=== PATIENT | female | born 1995 | race Caucasian/White ===

== ENCOUNTER 2023-06-10 12:53 | Inpatient (IN) | payer BC, OTHER ==
[~2023-06-10] VITALS: Ht 157.5 cm; Wt 38.8 kg
[2023-06-10 13:57] LABS: BASOPHILS % (AUTO) 0.5 % (0-1); EOSINOPHILS % (AUTO) 0.4 % (0-6); HEMATOCRIT 40.6 % (35.0-45.0); HEMOGLOBIN 13.5 g/dl (12.0-16.0); LYMPHOCYTES # (AUTO) 1.3 X10'3 (1.1-4.8); LYMPHOCYTES % (AUTO) 15.7 % (21-51); MEAN CORPUSCULAR HEMOGLOBIN 29.1 PG (27.0-31.0); MEAN CORPUSCULAR HGB CONC 33.1 g/dL (33.0-36.5); MEAN PLATELET VOLUME 9.6 FL (7.4-10.4); MONOCYTES # (AUTO) 0.5 X10'3 (0-0.9); MONOCYTES % (AUTO) 6.2 % (2-12); NEUTROPHILS # (AUTO) 6.2 X10'3 (1.8-7.7); NEUTROPHILS % (AUTO) 77.2 % (42-75); PLATELET COUNT 200 X10'3 (140-440); RED BLOOD COUNT 4.62 X10'6 (4.20-5.60); RED CELL DISTRIBUTION WIDTH 14.1 % (11.5-14.5); WHITE BLOOD COUNT 8.1 X10'3 (4.5-11.0)
[2023-06-10 14:08] LABS: ALANINE AMINOTRANSFERASE 15 U/L (12-78); ALBUMIN 4.2 G/DL (3.4-5.0); ALBUMIN/GLOBULIN RATIO 1.3 (1.1-1.5); ALKALINE PHOSPHATASE 76 IU/L (46-116); ANION GAP 8 (8-16); ASPARTATE AMINO TRANSFERASE 15 U/L (10-37); BILIRUBIN,TOTAL 0.5 MG/DL (0.1-1.0); BLOOD UREA NITROGEN 21 MG/DL (7-18); BUN/CREATININE RATIO 30.4 (10.0-20.0); CALCIUM 8.5 MG/DL (8.5-10.1); CHLORIDE 106 MMOL/L (99-107); CREATININE 0.69 MG/DL (0.40-0.90); GLUCOSE 95 MG/DL (70-104); LIPASE 26 U/L (16-77); POTASSIUM 4.9 MMOL/L (3.5-5.1); SODIUM 140 MMOL/L (135-145); TOTAL CARBON DIOXIDE 25.8 MMOL/L (24-32); TOTAL PROTEIN 7.5 G/DL (6.4-8.2); eCRCL 78 ML/MIN; eGFR > 90 ML/MIN
[2023-06-10] MEDS ORDERED: pantoprazole 40mg IV 80 MG in normal saline 100ml IV soln 100 ML IV ONE ×2 (15:05→21:35)
[2023-06-10] MEDS ORDERED: iohexol 300mg/ml 100ml inj. ONE (15:16)
[2023-06-10 15:17] LABS: BILIRUBIN,URINE NEGATIVE (Neg); CLARITY,URINE CLEAR (Clear); COLOR,URINE YELLOW (Yellow); GLUCOSE, URINE NEGATIVE (Neg); KETONES,URINE NEGATIVE (Neg); LEUKOCYTE ESTERASE ,URINE NEGATIVE (Neg); NITRITES, URINE NEGATIVE (Neg); OCCULT BLOOD,URINE MODERATE (Neg); PROTEIN,URINE NEGATIVE (Neg); UROBILINOGEN,URINE 0.2 E.U/dL (0.2-1.0)
[2023-06-10 15:21] LABS: UA COLLECTION TYPE CLN CATCH MIDSTREAM
[2023-06-10] MEDS: pantoprazole 40 MG vial IV SCH (15:22)
[2023-06-10 15:26] LABS: BACTERIA,URINE NONE SEEN /HPF (Neg); RBC,URINE 0-2 /HPF (0-2); SQUAMOUS EPITHELIAL CELL,UR FEW /LPF (FEW); URINE HCG NEGATIVE (NEG); WBC,URINE NONE SEEN /HPF (0-4)
[2023-06-10] MEDS: normal saline 1000ML IV soln IV ONE (15:48)
[2023-06-10] MEDS: ondansetron/PF 4mg/2ml inj IV ONE (15:49)
[2023-06-10] MEDS: diatr meglu/diatrizoate 30ml oral sol.-(3 dose) bottle PO SCH (15:50)
[2023-06-10] MEDS: LORazepam 2 mg/ml vial IV ONE (15:50)
[2023-06-10] MEDS: pantoprazole 40MG/NS 100ML BAG 100 ML IV SCH (16:00)
[2023-06-10 16:08] LABS: APTT 25 SECONDS (22-32); INR 1.1 INR; PROTHROMBIN TIME 11.9 SECONDS (9.0-12.0)
[2023-06-10 16:19] LABS: PRO BRAIN NATRIURETIC PEPTIDE 64 PG/ML (0-125)
[2023-06-10] MEDS ORDERED: potassium Cl 20 mEq SR tablet PO PRN ×2 (17:10)
[2023-06-10] MEDS ORDERED: acetaminophen 325mg tablet PO PRN (17:10)
[2023-06-10] MEDS ORDERED: mag hydrox/Alum hydrox/simeth 30ml oral suspension PO PRN (17:10)
[2023-06-10] MEDS ORDERED: magnesium 2GM in 50ml NS 50 ML IV PRN (17:10)
[2023-06-10] MEDS ORDERED: ondansetron/PF 4mg/2ml inj IV PRN (17:10)
[2023-06-10] MEDS ORDERED: potassium Cl 40MEQ/1/2NS 520ml 520 ML IV PRN (17:10)
[2023-06-10] MEDS ORDERED: magnesium 4gm in 100ml NS 100 ML IV PRN (17:10)
[2023-06-10] MEDS ORDERED: magnesium hydroxide 30ml (MOM) UD suspension PO PRN (17:10)
[2023-06-10 18:56] LABS: OCCULT BLOOD STOOL POSITIVE (Neg)
[2023-06-10] MEDS: K and/or MAG REPLACEMENT MC SCH (20:00)
[2023-06-10] MEDS: docusate sod 100mg capsule PO SCH (20:00)
[2023-06-10 21:19] LABS: HEMATOCRIT 27.8 % (35.0-45.0); HEMOGLOBIN 9.4 g/dl (12.0-16.0); MEAN CORPUSCULAR HEMOGLOBIN 29.5 PG (27.0-31.0); MEAN CORPUSCULAR HGB CONC 33.9 g/dL (33.0-36.5); MEAN PLATELET VOLUME 9.1 FL (7.4-10.4); PLATELET COUNT 135 X10'3 (140-440); RED BLOOD COUNT 3.19 X10'6 (4.20-5.60); RED CELL DISTRIBUTION WIDTH 13.4 % (11.5-14.5); WHITE BLOOD COUNT 6.3 X10'3 (4.5-11.0)
[2023-06-10] MEDS: pantoprazole 40 MG vial IV ONE (21:50)
[2023-06-11] MEDS: pantoprazole 40MG/NS 100ML BAG 100 ML IV SCH (01:00)
[2023-06-11 03:50] LABS: BASOPHILS % (AUTO) 0.5 % (0-1); EOSINOPHILS # (AUTO) 0.1 X10'3 (0-0.9); EOSINOPHILS % (AUTO) 1.2 % (0-6); HEMATOCRIT 29.8 % (35.0-45.0); LYMPHOCYTES % (AUTO) 40.3 % (21-51); MEAN CORPUSCULAR HEMOGLOBIN 29.4 PG (27.0-31.0); MEAN CORPUSCULAR HGB CONC 33.5 g/dL (33.0-36.5); MEAN PLATELET VOLUME 9.2 FL (7.4-10.4); MONOCYTES # (AUTO) 0.3 X10'3 (0-0.9); MONOCYTES % (AUTO) 6.5 % (2-12); NEUTROPHILS # (AUTO) 2.6 X10'3 (1.8-7.7); NEUTROPHILS % (AUTO) 51.5 % (42-75); PLATELET COUNT 149 X10'3 (140-440); RED BLOOD COUNT 3.39 X10'6 (4.20-5.60); RED CELL DISTRIBUTION WIDTH 13.6 % (11.5-14.5)
[2023-06-11 04:07] LABS: ALANINE AMINOTRANSFERASE 12 U/L (12-78); ALBUMIN 3.2 G/DL (3.4-5.0); ALBUMIN/GLOBULIN RATIO 1.3 (1.1-1.5); ALKALINE PHOSPHATASE 51 IU/L (46-116); ANION GAP 9 (8-16); ASPARTATE AMINO TRANSFERASE 11 U/L (10-37); BILIRUBIN,TOTAL 0.5 MG/DL (0.1-1.0); BLOOD UREA NITROGEN 18 MG/DL (7-18); BUN/CREATININE RATIO 25.7 (10.0-20.0); CALCIUM 8.2 MG/DL (8.5-10.1); CHLORIDE 111 MMOL/L (99-107); GLUCOSE 83 MG/DL (70-104); SODIUM 142 MMOL/L (135-145); TOTAL PROTEIN 5.7 G/DL (6.4-8.2); eCRCL 77 ML/MIN; eGFR > 90 ML/MIN
[2023-06-11 07:15] LABS: C DIFF ANTIGEN NEGATIVE (NEGATIVE); C DIFF SPECIMEN=DIARRHEA? ACCEPTABLE; C DIFFICILE TOXINS A&B NEGATIVE (Neg)
[2023-06-11 07:50] VITALS: BP 105/63; PULSE 69; RESP 16; TEMP 98.8; O2SAT 100
[2023-06-11 08:45] VITALS: RESP 16; O2SAT 100
[2023-06-11 10:00] VITALS: BP 100/62; PULSE 69; RESP 16; TEMP 98.7; O2SAT 100
[2023-06-11] MEDS ORDERED: ETON68IM4 SQ (10:35)
[2023-06-11 18:00] VITALS: BP 96/56; PULSE 71; RESP 16; TEMP 98.1; O2SAT 100
[2023-06-11] MEDS: lactose-reduced food (Ensure Enlive) - 237ml bottle PO SCH (18:00)
[2023-06-11 20:50] VITALS: RESP 16; O2SAT 100
[2023-06-11 22:10] VITALS: BP 98/60; PULSE 72; RESP 16; TEMP 97.8; O2SAT 100
[2023-06-12 06:42] VITALS: BP 105/61; PULSE 80; RESP 16; TEMP 98.1; O2SAT 97
[2023-06-12 07:00] LABS: BASOPHILS % (AUTO) 0.8 % (0-1); EOSINOPHILS # (AUTO) 0.1 X10'3 (0-0.9); HEMOGLOBIN 11.1 g/dl (12.0-16.0); LYMPHOCYTES # (AUTO) 1.9 X10'3 (1.1-4.8); LYMPHOCYTES % (AUTO) 40.7 % (21-51); MEAN CORPUSCULAR HEMOGLOBIN 29.2 PG (27.0-31.0); MEAN CORPUSCULAR HGB CONC 33.7 g/dL (33.0-36.5); MEAN CORPUSCULAR VOLUME 86.8 FL (78-98); MEAN PLATELET VOLUME 9.2 FL (7.4-10.4); MONOCYTES # (AUTO) 0.4 X10'3 (0-0.9); MONOCYTES % (AUTO) 8.6 % (2-12); NEUTROPHILS # (AUTO) 2.2 X10'3 (1.8-7.7); NEUTROPHILS % (AUTO) 46.9 % (42-75); PLATELET COUNT 152 X10'3 (140-440); RED BLOOD COUNT 3.81 X10'6 (4.20-5.60); RED CELL DISTRIBUTION WIDTH 13.2 % (11.5-14.5); WHITE BLOOD COUNT 4.7 X10'3 (4.5-11.0)
[2023-06-12 07:18] LABS: ALANINE AMINOTRANSFERASE 14 U/L (12-78); ALBUMIN 3.6 G/DL (3.4-5.0); ALBUMIN/GLOBULIN RATIO 1.3 (1.1-1.5); ALKALINE PHOSPHATASE 66 IU/L (46-116); ANION GAP 8 (8-16); ASPARTATE AMINO TRANSFERASE 14 U/L (10-37); BILIRUBIN,TOTAL 0.6 MG/DL (0.1-1.0); BLOOD UREA NITROGEN 12 MG/DL (7-18); BUN/CREATININE RATIO 15.2 (10.0-20.0); CALCIUM 8.5 MG/DL (8.5-10.1); CHLORIDE 106 MMOL/L (99-107); CREATININE 0.79 MG/DL (0.40-0.90); GLUCOSE 83 MG/DL (70-104); MAGNESIUM 1.7 MG/DL (1.5-2.4); POTASSIUM 4.3 MMOL/L (3.5-5.1); SODIUM 141 MMOL/L (135-145); TOTAL CARBON DIOXIDE 26.9 MMOL/L (24-32); TOTAL PROTEIN 6.4 G/DL (6.4-8.2); eCRCL 64 ML/MIN; eGFR 86 ML/MIN
[2023-06-12 08:00] VITALS: RESP 12; O2SAT 100
== END 2023-06-12 12:10 | disposition home or self-care (01) | DRG 378 ==
LOC: ER 12:53 → ED HOLD 17:20 → OBSVTOIN 21:34 → ED HOLD 06-11 05:23 → ORTHO 4S 06-11 07:42
PROVIDERS: ADMIT Family Medicine; ATTEND Family Medicine
PROC: BW211ZZ Computerized Tomography (CT Scan) of Abdomen and Pelvis using Low Osmolar Contrast (ICD-10-PCS; principal; 2023-06-10)
DX: K92.1 Melena (principal); D62 Acute posthemorrhagic anemia; J45.909 Unspecified asthma, uncomplicated; Z20.822 Contact with and (suspected) exposure to COVID-19; Z87.442 Personal history of urinary calculi; E06.3 Autoimmune thyroiditis; R55 Syncope and collapse; Z83.3 Family history of diabetes mellitus
CPT/HCPCS: 36415; 71045; 74177; 80053; 81001; 81025; 82272; 83690; 83735; 83880; 84484; 85025; 85027; 85610; 85730; 86885; 86900; 86901; 87045; 87046; 87081; 87324; 87449; 89055; 93005; 96361; 96374; 96375; 99291; C9113; G0378; J2060; J2405; J3490; J7030; Q9963; Q9967

== ENCOUNTER 2024-11-19 10:52 | Emergency (ER) | payer BC, OTHER ==
[~2024-11-19] VITALS: Ht 157.5 cm; Wt 43.2 kg
[~2024-11-19 10:52] MED LIST: ETON68IM4 SQ
[2024-11-19 11:14] VITALS: TEMP 98.8
[2024-11-19 12:14] LABS: LEUKOCYTE ESTERASE ,URINE NEGATIVE (Neg); NITRITES, URINE NEGATIVE (Neg); OCCULT BLOOD,URINE MODERATE (Neg)
[2024-11-19 12:18] LABS: URINE HCG NEGATIVE (NEG)
[2024-11-19 12:19] LABS: UA COLLECTION TYPE CLN CATCH MIDSTREAM
[2024-11-19 12:21] LABS: MUCUS STRANDS MODERATE /LPF (Neg); RENAL CELLS, URINE FEW /HPF; SQUAMOUS EPITHELIAL CELL,UR FEW /LPF (FEW)
--- NOTE | 2024-11-19 12:30 | Physician Documentation ---
History of Present Illness Chief Complaint: Flank Pain Stated Complaint: FLANK PAIN Time Seen by MD: 11:30 Primary Medical Doctor: CODY Source: patient Mode of Arrival: POV, Ambulatory Exam Limitations: no limitations HPI Patient who woke up at 7 this morning with moderate right flank pain. Very trace pain in the right lower quadrant. History of kidney stones. No history of urinary tract infection or kidney infection. Otherwise healthy. She has passed 2 stones in the past. She has not needed intervention. She does not want anything for pain at this time. Medication Reconciliation Allergies: Coded Allergies: No Known Allergies (Unverified , 11/19/24) Scheduled Hydrocodone Bit/Acetaminophen 5/325 MG ([place] 5/325 MG), 1 TAB PO Q6H Sulfamethoxazole/Trimethoprim (Bactrim Ds Tablet), 1 TAB PO Q12H Tamsulosin Hcl* (Flomax*), 0.4 MG PO DAILY Miscellaneous Medications Etonogestrel (Nexplanon), 68 MG SQ, (Reported) Past Medical History Past Medical History: Asthma, *GI/HEPATOBILIARY* Past Surgical History: other Patient History: FH: diabetes mellitus MOTHER, Onset:40's - 50 Maternal grandmother FH: hypothyroidism Gestational diabetes MOTHER Review of Systems All Other Systems at this time: Reviewed and Negative Physical Exam Vital Signs: Temperature: 98.8, Source: Temporal, Heart Rate: 71, Respiratory Rate: 18, BP: 108/69, Pulse Oximetry: 100, Weight: 43.180 General Appearance: alert, other (uncomfortable appearing) Neck: full range of motion Respiratory: no respiratory distress Chest: no accessory muscle use Gastrointestinal: normal palpation, non-tender Back: no CVA tenderness Extremities: normal range of motion, non-tender Neurologic: oriented x4 Psychiatric: normal mood/affect Skin: normal color, warm/dry Progress Results/Orders Results/Orders Orders - CHEIKH COHEN MD Cult Urine + [place] Ct (11/19/24 12:22) Ct Abdomen Pelvis (11/19/24 12:27) Completed Orders - CHEIKH COHEN MD Hcg, Ur Ql (11/19/24 11:31) Ua W/Microscopic, Cult If Ind (11/19/24 12:00) Vital Signs 11/19/24 11/19/24 11:14 11:49 Temp 98.8 Pulse 71 Resp 18 B/P (MAP) 108/69 Pulse Ox 100 Laboratory Tests Test 11/19/24 12:00 Urine Specimen Description Cln catch midstream Urine Color Yellow Urine Clarity Cloudy Urine pH 6.0 Urine Specific [place] >=1.030 Urine Protein 30 H Urine Glucose (UA) Negative Urine Ketones 15 H Urine Occult Blood Moderate H Urine Nitrite Negative Urine Bilirubin Small Urine Urobilinogen 0.2 Urine Leukocyte Esterase Negative Urine RBC Tntc Urine WBC 5-10 H Urine Squamous Epithelial Cells Few Urine Renal Cells Few Urine Bacteria 1+ Urine Mucus Moderate Urine Culture Indicated Indicated Volume Urine Centrifuged 10 ml Urine HCG, Qualitative Negative Urine Comment Medical Decision Making Additional Comments Patient with a history of kidney stone in with flank pain. She does have a 3 mm stone just at the UVJ. Giving script for Flomax. Also placing her on Bactrim for possible mild UTI. Urine culture is pending. Discussed that she should be able to pass this easily the rest of the way. Patient did not want any medic ation in the ED. Did give Flomax. Gave the number to follow up with Urology. She is to return here if new or worsening symptoms prior to follow-up. Gave strainer to strain her urine. Discharged home in good condition. Departure Disposition: 01 HOME / SELF CARE / HOMELESS Impression: Primary Impression: Calculus of kidney Condition: Stable Discharge Instructions: Kidney Stones Additional Instructions: Take the Flomax once a day and complete your antibiotics. Call Dr. Womack's off ice in Urology early next week to arrange follow up. Drink plenty of water. Strain your urine to know if he has passed the stone. Return to the ER if new or worsening symptoms prior to follow up. Referrals: NO PRIMARY CARE PROVIDER (PCP) GIANNA WOMACK MD Prescriptions Tamsulosin Hcl* (Flomax*) 0.4 Mg Cap.sr.24h 0.4 MG PO DAILY, #10 CAP Prov: CHEIKH COHEN MD 11/19/24 Sulfamethoxazole/Trimethoprim (Bactrim Ds Tablet) 800 Mg-160 Mg Tablet 1 TAB PO Q12H for 7 Days, #14 TAB Prov: CHEIKH COHEN MD 11/19/24 Hydrocodone Bit/Acetaminophen 5/325 MG ([place] 5/325 MG) 5 Mg/325 Mg Tablet 1 TAB PO Q6H, #10 TAB prn pain Prov: CHEIKH COHEN MD 11/19/24 Education Educated: Patient Educated regarding: diagnosis, treatment, prognosis, need for follow up Signature Scribe Signature: No scribe Attestation: No scribe CHEIKH COHEN MD Nov 19, 2024 12:30
--- NOTE | 2024-11-19 13:06 | RADIOLOGY REPORT ---
CLINICAL HISTORY: right flank pain, hx renal stones TECHNIQUE: CT of the abdomen and pelvis was performed without IV contrast. This exam was performed ac cording to our departmental dose optimization program. Up-to-date CT equipment and radiation dose red uction techniques are utilized as appropriate. CTDI 4.3 DLP 172.4 COMPARISON: CT CT ABDOMEN PELVIS on DOS: 06/10/23 FINDINGS: Abdomen/Pelvis: The spleen, adrenal glands, pancreas, liver, gallbladder, and left kidney are grossly unremarkable. There is a 3 mm right UVJ calculus resulting in mild right hydronephrosis. The abdominal aorta is normal in course and caliber. There are no significant atherosclerotic calcifi cations. There is no free intraperitoneal air or fluid. There is no enlarged abdominal pelvic lymph node. There is no bowel wall thickening or dilatation. The appendix is normal. Other: The imaged lower thorax is unremarkable. No acute osseous abnormality is evident. Impression: 3 mm right UVJ calculus resulting in mild right hydronephrosis.
[2024-11-19] MEDS ORDERED: HYDR-3965 PO (13:27)
[2024-11-19] MEDS ORDERED: SULF1TAB49 PO (13:27)
[2024-11-19] MEDS ORDERED: TAMS-55 PO (13:28)
[2024-11-19 14:14] VITALS: BP 108/61; PULSE 60; RESP 16; O2SAT 99
[2024-11-19] MEDS: sulfamethoxazole/trimethoprim DS (800/160mg) tablet PO ONE (14:21)
== END 2024-11-19 14:27 | disposition home or self-care (01) ==
LOC: ER 10:53
DX: N20.0 Calculus of kidney (principal); J45.909 Unspecified asthma, uncomplicated; Z87.442 Personal history of urinary calculi; Z79.899 Other long term (current) drug therapy
CPT/HCPCS: 74176; 81001; 81025; 87088; 99284

== ENCOUNTER 2024-11-20 21:06 | Emergency (ER) | payer BC, OTHER ==
[~2024-11-20] VITALS: Ht 157.5 cm; Wt 45.0 kg
[~2024-11-20 21:06] MED LIST changes: +HYDR-3965 PO; +SULF1TAB49 PO; +TAMS-55 PO
[2024-11-20] MEDS: ondansetron/PF 4mg/2ml inj IV ONE (21:58)
[2024-11-20] MEDS: normal saline 1000ML IV soln IVB ONE (21:58)
[2024-11-20] MEDS: ketorolac trometh 15mg/ml vial 15 MG/ML ML IV ONE (21:59)
[2024-11-20 22:38] LABS: MEAN PLATELET VOLUME 9.2 FL (7.4-10.4); RED CELL DISTRIBUTION WIDTH 13.7 % (11.5-14.5)
[2024-11-20 22:50] LABS: CREATININE 0.96 MG/DL (0.40-0.90); TOTAL CARBON DIOXIDE 23.6 MMOL/L (24-32); eCRCL 60 ML/MIN; eGFR 68 ML/MIN
[2024-11-20 23:09] LABS: LEUKOCYTE ESTERASE ,URINE NEGATIVE (Neg); NITRITES, URINE NEGATIVE (Neg); OCCULT BLOOD,URINE LARGE (Neg)
[2024-11-20 23:10] LABS: UA COLLECTION TYPE CLN CATCH MIDSTREAM
[2024-11-20 23:14] LABS: SQUAMOUS EPITHELIAL CELL,UR FEW /LPF (FEW)
[2024-11-20 23:15] LABS: MUCUS STRANDS MODERATE /LPF (Neg)
[2024-11-20 23:16] LABS: CAL OXALATE CRYSTALS 2+ /HPF (NEGATIVE)
[2024-11-20] MEDS: CefTRIAXone/D5W-Rocephin 1gm 50 ML IV ONE (23:18)
--- NOTE | 2024-11-21 00:33 | Physician Documentation ---
History of Present Illness Chief Complaint: Abdominal Pain Stated Complaint: KIDNEY STONES Time Seen by MD: 23:04 OK to notify your PCP?: Yes Primary Medical Doctor: CODY Source: patient Mode of Arrival: POV, Ambulatory Exam Limitations: no limitations HPI This patient was seen the other day for kidney stones. She has a 3 mm right UVJ stone. She did fine after being evaluated by the ER physician who gave her Bactrim, [place], Flomax. She states her pain now is severe colicky radiating to the groin area. Her pain is 10/10 she feels like vomiting can not find a comfortable position. She is now here for evaluation and care. Medication Reconciliation Allergies: Coded Allergies: No Known Allergies (Unverified , 11/19/24) Scheduled Hydrocodone Bit/Acetaminophen 5/325 MG ([place] 5/325 MG), 1 TAB PO Q6H Sulfamethoxazole/Trimethoprim (Bactrim Ds Tablet), 1 TAB PO Q12H Tadalafil* (Cialis*), 1 TAB PO DAILY Tamsulosin Hcl* (Flomax*), 0.4 MG PO DAILY Miscellaneous Medications Etonogestrel (Nexplanon), 68 MG SQ, (Reported) Past Medical History Past Medical History: Asthma, *GI/HEPATOBILIARY*, Kidney Stones Past Surgical History: other Patient History: FH: diabetes mellitus MOTHER, Onset:40's - 50 Maternal grandmother FH: hypothyroidism Gestational diabetes MOTHER Smoking Status: Never smoker Review of Systems All Other Systems at this time: Reviewed and Negative Physical Exam Vital Signs: RN Vital Signs have been reviewed: Yes, Temperature: 98.7, Source: Temporal, Heart Rate: 59, Respiratory Rate: 18, BP: 92/50, Pulse Oximetry: 100, Weight: 45.000 Oxygen Flow Rate: 0 Physical Exam General: The patient is well developed, well nourished, nontoxic appearing and is in no acute distress. Skin: [place], warm and dry with no rashes. HEENT: Head was normocephalic and atraumatic. Eyes - pupils equal, round, reactive to light and accommodation. Extraocular movements were intact. Conjunctivae were nonicteric. The mouth and oropharynx were clear with moist mucous membranes. Neck: Supple and nontender. There was no jugular venous distention, lymphadenopathy, Chest: Clear to auscultation bilaterally without wheezes, rales or rhonchi. No accessory muscle use. Heart: Rate regular and rhythmic. S1, S2. No murmurs. Palpation of the chest wall was normal. Abdomen: nondistended. Positive bowel sounds. No guarding or rebound. No hepatosplenomegaly or palpable masses. Right flank CVA tenderness Extremities: No cyanosis, clubbing or edema. The patient moves all extremities. Pulses were equal and symmetric. Neurologic: Cranial nerves II-XII were intact. Sensation was intact to light touch throughout. Motor strength was 5/5 in all four extremities. Deep tendon reflexes were intact in both upper and lower extremities. Psychologic: The patient was oriented to person, place and time. The patient demonstrated appropriate judgement and insight. Progress Results/Orders Reviewed/noted all lab results: Yes Results/Orders Orders - ABDIAS CHOWDHURY MD Sildenafil Citrate 20mg Tablet (Revatio (11/20/24 23:05) Completed Orders - ABDIAS CHOWDHURY MD Cbc/Diff (11/20/24 22:11) MG (11/20/24 22:11) BMP (11/20/24 22:11) Lipase (11/20/24 22:11) Liver Panel (11/20/24 22:11) Hydromorphone 1 Mg/Ml/Pf (Dilaudid Inj.) (11/20/24 23:05) Ceftriaxone/W4r-Bozrbwtz 1gm (Rocephin 1 (11/20/24 23:05) Ua With Microscopic (11/20/24 23:00) Medications Received in ER Medications (Trade) Dose Ordered Sig/Yamil Route PRN Reason Start Time Stop Time Status Last Admin Dose Admin (Zofran 4mg/2ml vial) 4 mg ONCE ONCE IV 11/20/24 21:35 11/20/24 21:36 DC 11/20/24 21:58 4 MG (Toradol injection) 15 mg ONCE ONCE IV 11/20/24 21:35 11/20/24 21:36 DC 11/20/24 21:59 15 MG (0.9% sodium chloride (NS) 1000ml IV soln) 1,000 ml ONCE ONCE IVB 11/20/24 21:35 11/20/24 21:36 DC 11/20/24 21:58 1,000 ML (Dilaudid inj.) 1 mg ONCE ONCE IV 11/20/24 23:05 11/20/24 23:06 DC 11/20/24 23:15 1 MG (Revatio tablet) 20 mg ONCE PO 11/20/24 23:05 11/20/24 23:41 20 MG Ceftriaxone Sodium 50 ml @ 100 mls/hr ONCE ONCE IV 11/20/24 23:05 11/20/24 23:34 DC 11/20/24 23:18 100 MLS/HR Vital Signs 11/20/24 11/20/24 11/20/24 11/20/24 21:24 21:59 22:15 22:26 Temp 98.7 Pulse 79 67 Resp 20 20 18 16 B/P (MAP) 115/65 97/63 (74) Pulse Ox 100 100 O2 Flow Rate 0 11/20/24 23:28 Pulse 59 Resp 18 B/P (MAP) 92/50 (64) Pulse Ox 100 Laboratory Tests Test 11/20/24 22:23 11/20/24 23:00 White Blood Count 6.6 Red Blood Count 3.92 L Hemoglobin 11.4 L Hematocrit 33.7 L Mean Corpuscular Volume 85.9 Mean Corpuscular Hemoglobin 29.1 Mean Corpuscular Hemoglobin Concent 33.8 Red Cell Distribution Width 13.7 Platelet Count 132 L Mean Platelet Volume 9.2 Neutrophils (%) (Auto) 74.2 Lymphocytes (%) (Auto) 18.4 L Monocytes (%) (Auto) 6.1 Eosinophils (%) (Auto) 0.9 Basophils (%) (Auto) 0.4 Neutrophils # (Auto) 4.9 Lymphocytes # (Auto) 1.2 Monocytes # (Auto) 0.4 Eosinophils # (Auto) 0.1 Basophils # (Auto) 0.0 CBC Comment Sodium Level 137 Potassium Level 3.4 L Chloride Level 106 Carbon Dioxide Level 23.6 L Anion Gap 7 L Blood Urea Nitrogen 15 Creatinine 0.96 H Estimated GFR/1.73 m2 68 BUN/Creatinine Ratio 15.6 Glucose Level 83 Calcium Level 7.8 L Magnesium Level 1.7 Total Bilirubin 0.4 Direct Bilirubin 0.1 Aspartate Amino Transf (AST/SGOT) 13 Alanine Aminotransferase (ALT/SGPT) 11 L Alkaline Phosphatase 60 Total Protein 5.6 L Albumin 3.4 Globulin 2.2 L Albumin/Globulin Ratio 1.5 Lipase 25 Chemistry Comments Urine Specimen Description Cln catch midstream Urine Color Straw Urine Clarity Clear Urine pH 6.0 Urine Specific [place] >=1.030 Urine Protein Trace Urine Glucose (UA) Negative Urine Ketones 15 H Urine Occult Blood Large H Urine Nitrite Negative Urine Bilirubin Small Urine Urobilinogen 0.2 Urine Leukocyte Esterase Negative Urine RBC 20-50 Urine WBC 5-10 H Urine Squamous Epithelial Cells Few Urine Calcium Oxalate Crystals 2+ Urine Bacteria Few Urine Mucus Moderate Volume Urine Centrifuged 10 ml Urine Comment Re-Evaluation Re-Evaluation : Re-Evaluation: Resolved Progress Patient was seen and examined. Patient was given reassurance. Patient was just seen for renal colic yesterday received antibiotics pain meds and Flomax. Upon arrival patient received laboratory work patient has a UTI prior visit. Patient's laboratory work was obtained CBC is within normal limits except slight anemia of hemoglobin 11 and hematocrit 33 but no leukocytosis or left shift. Chemistry had some borderline hyponatremia with a potassium of 3.4 CO2 slightly low at 23.6 otherwise LFTs within normal limits lipase within normal limits. Urinalysis however shows a specific gravity of 1.030 with large occult blood 20- 50 RBCs but 5-10 WBCs few squamous epithelial cells. Patient received 2 L bolus as. Zofran and Toradol initially for pain upon arrival. Later Dilaudid was g iven as well as Viagra 20 mg oral and Rocephin finally 2 g of magnesium and another L boluses given. Patient was ambulated she is feeling much better in fact she is pain-free. She was encouraged to return if she has any worsening symptoms otherwise continue with her home medications except Cialis should be taken. Continuous continuous improvement specialist interpretation shows normal sinus rhythm heart rate 60s, no ectopy, normal, my interpretation. Pulse oximetry monitor interpretation shows normal oxygenation 99% room air, normal, my interpretation. EKG/XRAY/CT/US/VASC/MRI CT : Impression CLINICAL HISTORY: right flank pain, hx renal stones TECHNIQUE: CT of the abdomen and pelvis was performed without IV contrast. This exam was performed according to our departmental dose optimization program. Up-to-date CT equipment and radiation dose reduction techniques are utilized as appropriate. CTDI 4.3 DLP 172.4 COMPARISON: CT CT ABDOMEN PELVIS on DOS: 06/10/23 FINDINGS: Abdomen/Pelvis: The spleen, adrenal glands, pancreas, liver, gallbladder, and left kidney are grossly unremarkable. There is a 3 mm right UVJ calculus resulting in mild right hydronephrosis. The abdominal aorta is normal in course and caliber. There are no significant atherosclerotic calcifications. There is no free intraperitoneal air or fluid. There is no enlarged abdominal pelvic lymph node. There is no bowel wall thickening or dilatation. The appendix is normal. Other: The imaged lower thorax is unremarkable. No acute osseous abnormality is evident. Impression: 3 mm right UVJ calculus resulting in mild right hydronephrosis. Electronically Signed by:SAMY LOCKE MD Date & Time: 11/19/24 1304 Medical Decision Making Additional info obtained from: old records Differential Dx:Considerations: Include: Appendicitis, Bowel obstruction, Cholangitis, Cholelithasis, Constipation, Esophagitis, Gastritis/PUD, Gastroenteritis, GI hemorrhage, Hepatitis, Inflammatory BD, Ischemic bowel, Pancreatitis, PID, Urinary obstruction, Urinary tract infection, Urolithiasis, Other Departure Disposition: 01 HOME / SELF CARE / HOMELESS Impression: Primary Impression: Renal colic on right side Additional Impression: Acute urinary tract infection Condition: Stable Referrals: NO PRIMARY CARE PROVIDER (PCP) Prescriptions Tadalafil* (Cialis*) 5 Mg Tablet 1 TAB PO DAILY for renal colic for 12 Days, #12 TAB Prov: ABDIAS CHOWDHURY MD 11/21/24 Education Educated: Patient, Family Educated regarding: diagnosis, treatment, prognosis Signature Scribe Signature: x Attestation: ABDIAS Decker MD Nov 21, 2024 00:33
[2024-11-21] MEDS ORDERED: TADA5TAB2 PO (00:50)
[2024-11-21] MEDS: normal saline 1000ML IV soln IVB ONE (01:29)
[2024-11-21] MEDS: magnesium sulf-water 2g/50mL 50 ML IV ONE (02:23)
[2024-11-21 03:03] VITALS: BP 95/94; PULSE 61; RESP 18; TEMP 98.7; O2SAT 100
== END 2024-11-21 03:30 | disposition home or self-care (01) ==
LOC: ER 21:06
DX: N39.0 Urinary tract infection, site not specified (principal); N23 Unspecified renal colic; J45.909 Unspecified asthma, uncomplicated; E87.1 Hypo-osmolality and hyponatremia; Z87.442 Personal history of urinary calculi; Z79.899 Other long term (current) drug therapy
CPT/HCPCS: 36415; 80048; 80076; 81001; 83690; 83735; 85025; 96361; 96365; 96366; 96367; 96375; 99285; J0696; J1171; J1885; J2405; J7030